=== PATIENT | female | born 1990 | race Hispanic/Latino ===

== ENCOUNTER 2017-11-12 05:20 | Emergency (ER) | payer BC ==
[2017-11-12 05:33] VITALS: BP 116/78; PULSE 73; RESP 16; O2SAT 100
--- NOTE | 2017-11-12 05:43 | ED PDOC ---
HPI: General Adult Time Seen by Provider: 11/12/17 05:32 Chief Complaint (Nursing): ENT Problem Chief Complaint (Provider): right jaw/ear pain History/Exam Limitations: no limitations Onset/Duration Of Symptoms: Days (2), Waxing/Waning Additional Complaint(s): 27 y/o female presents for evaluation of intermittent pain to right upper jaw x 2 days. Patient states she has noticed pain to area in front and above right ear, which is worsened to touch and when opening/closing mouth. Patient states pain radiates to right ear. Denies fever, drainage from ear, nasal congestion/ discharge, cough. Two motrin taken prior to arrival. Past Medical History Reviewed: Historical Data, Nursing Documentation, Vital Signs Vital Signs: Last Vital Signs Temp 98.0 F 11/12/17 05:31 Pulse 73 11/12/17 05:31 Resp 16 11/12/17 05:31 BP 116/78 11/12/17 05:31 Pulse Ox 100 11/12/17 05:31 - Medical History PMH: No Chronic Diseases - Surgical History Surgical History: No Surg Hx - Family History Family History: States: No Known Family Hx - Allergies Allergies/Adverse Reactions: Allergies Allergy/AdvReac Type Severity Reaction Status Date / Time No Known Allergies Allergy Verified 11/12/17 05:33 Review of Systems ROS Statement: Except As Marked, All Systems Reviewed And Found Negative ENT: Positive for: Ear Pain, Other (jaw pain) Physical Exam - Reviewed Nursing Documentation Reviewed: Yes Vital Signs Reviewed: Yes - Physical Exam Appears: Positive for: Well, Non-toxic, No Acute Distress Head Exam: Positive for: ATRAUMATIC, NORMAL INSPECTION, NORMOCEPHALIC ENT: Positive for: TM Is/Are (TMs clear with + light reflex bilaterally. EACs clear bilaterally. No tragus or mastoid tenderness bilaterally), Other (tender to palpate right mastication muscles without swelling, deformity. decreased ROM with right TMJ due to pain when opening mouth). Negative for: Nasal Congestion , Pharyngeal Erythema, Tonsillar Exudate, Tonsillar Swelling Cardiovascular/Chest: Positive for: Regular Rate, Rhythm - ECG O2 Sat by Pulse Oximetry: 100 - Progress ED Course And Treament: Patient educated on findings, advised to continue NSAIDs, Dental follow up Return precautions given Disposition - Clinical Impression Clinical Impression: Temporomandibular joint pain - Patient ED Disposition Is Patient to be Admitted: No Counseled Patient/Family Regarding: Diagnosis, Need For Followup - Disposition Disposition: Routine/Home Disposition Time: 05:45 Condition: STABLE Instructions: Temporomandibular Joint (TMJ) Disorders Forms: [employer] [facility] (Finnish)
[2017-11-12 06:06] VITALS: TEMP 97.9
== END 2017-11-12 05:45 | disposition home or self-care (01) ==
LOC: H.ER 05:20
DX: M26.609 Unspecified temporomandibular joint disorder, unspecified side (principal)